=== PATIENT | male | born 1960 | race Caucasian/White ===

== ENCOUNTER 2016-11-19 05:32 | Emergency (ER) | payer MEDICAID ==
[~2016-11-19] VITALS: Ht 177.8 cm; Wt 69.9 kg
[~2016-11-19 05:32] MED LIST: NOR10T PO
[2016-11-19] MEDS ORDERED: SODIUM CHLORIDE 0.9% 1,000 ML IV ONE (06:47)
[2016-11-19 07:43] LABS: Basophils # (auto) 0 uL; Basophils % (auto) 0.4 % (0.0-2.0); Eosinophils # (auto) 0.3 uL; Eosinophils % (auto) 3.4 % (0.0-7.0); Hemoglobin 12.8 g/dL (13.5-17.5); Lymphocytes # (auto) 3.6 uL; Lymphocytes % (auto) 41.9 % (10.0-50.0); Mean Corpuscular Hemoglobin 30.1 pg (28.0-32.0); Mean Corpuscular Hgb Conc. 33.8 g/dL (32.0-36.0); Mean Corpuscular Volume 89.2 fL (80.0-100.0); Mean Platelet Volume 8.6 fL (7.4-10.4); Monocytes # (auto) 0.7 uL; Monocytes % (auto) 8.3 % (0.0-12.0); Neutrophils # (auto) 3.9 uL; Platelet Count (auto) 278 10^3/uL (140-450); Red Cell Distribution Width 13.7 % (11.6-16.0); White Blood Cell 8.5 10^3/uL (4.4-10.8)
[2016-11-19 08:14] LABS: Albumin 3.3 g/dL (3.4-5.0); BUN/Creatinine Ratio 15.1; Bilirubin, Total 0.3 mg/dL (0.2-1.0); Calcium 8.2 mg/dL (8.5-10.1); Total Protein 6.2 g/dL (6.4-8.2)
[2016-11-19 08:37] LABS: Urine RBC None Seen /hpf (0 - 3)
[2016-11-19 08:50] LABS: Urine Bilirubin Negative (Negative); Urine Blood Negative /uL (Negative); Urine Color Yellow (Yellow); Urine Glucose Normal (Normal); Urine Ketone Negative (Negative); Urine Nitrite Negative (Negative); Urine Urobilinogen Normal (Negative); Urine pH 6.5 (5.0-8.0)
[2016-11-19] MEDS ORDERED: IOHEXOL 300 MG/ML 100ML BOTTLE IJ ONE (09:52)
[2016-11-19 15:04] VITALS: BP 141/86
== END 2016-11-19 15:15 | disposition home or self-care (01) ==
LOC: ER 05:33
DX: Q89.2 Congenital malformations of other endocrine glands (principal); E44.1 Mild protein-calorie malnutrition; R73.9 Hyperglycemia, unspecified; I10 Essential (primary) hypertension; E78.5 Hyperlipidemia, unspecified; Z68.22 Body mass index [BMI] 22.0-22.9, adult; F17.210 Nicotine dependence, cigarettes, uncomplicated; F12.10 Cannabis abuse, uncomplicated; F15.10 Other stimulant abuse, uncomplicated
CPT/HCPCS: 36415; 70491; 71020; 76536; 80053; 81001; 83735; 84443; 85025; 96360; 96361; 99285; J7030; Q9967

== ENCOUNTER 2016-12-03 04:00 | Emergency (ER) | payer MEDICAID ==
[~2016-12-03] VITALS: Ht 177.8 cm; Wt 70.8 kg
[2016-12-03 04:51] LABS: Basophils # (auto) 0 uL; Basophils % (auto) 0.4 % (0.0-2.0); Eosinophils # (auto) 0.3 uL; Eosinophils % (auto) 3.3 % (0.0-7.0); Hematocrit 41.8 % (41.0-53.0); Hemoglobin 14.1 g/dL (13.5-17.5); Lymphocytes # (auto) 4.1 uL; Lymphocytes % (auto) 42.6 % (10.0-50.0); Mean Corpuscular Hgb Conc. 33.7 g/dL (32.0-36.0); Mean Corpuscular Volume 89.1 fL (80.0-100.0); Monocytes # (auto) 0.7 uL; Monocytes % (auto) 7.5 % (0.0-12.0); Neutrophils # (auto) 4.4 uL; Neutrophils % (auto) 46.2 % (37.0-80.0); Platelet Count (auto) 309 10^3/uL (140-450); Red Cell Distribution Width 13.8 % (11.6-16.0); White Blood Cell 9.6 10^3/uL (4.4-10.8)
[2016-12-03 05:04] LABS: Albumin 3.4 g/dL (3.4-5.0); Calcium 8.1 mg/dL (8.5-10.1); Potassium 3.7 mmol/L (3.5-5.1)
[2016-12-03 05:05] LABS: INR 0.92 (0.9-1.15); Partial Thromboplastin Time 28.1 sec (22.64-33.71)
[2016-12-03 05:06] LABS: BUN/Creatinine Ratio 21.4
[2016-12-03 05:08] LABS: Bilirubin, Total 0.3 mg/dL (0.2-1.0)
[2016-12-03 06:12] VITALS: BP 133/81
== END 2016-12-03 07:40 | disposition home or self-care (01) ==
LOC: ER 04:00
DX: Q89.2 Congenital malformations of other endocrine glands (principal); E78.5 Hyperlipidemia, unspecified; I10 Essential (primary) hypertension; F17.210 Nicotine dependence, cigarettes, uncomplicated; F12.10 Cannabis abuse, uncomplicated; F15.10 Other stimulant abuse, uncomplicated; Z79.899 Other long term (current) drug therapy
CPT/HCPCS: 36415; 70360; 80053; 84443; 85025; 85610; 85730

== ENCOUNTER 2018-05-15 09:16 | Emergency (ER) | payer MEDICAID ==
[~2018-05-15] VITALS: Ht 177.8 cm; Wt 68.0 kg
[2018-05-15 09:20] VITALS: BP 150/93
[2018-05-15] MEDS ORDERED: KETOROLAC TROMETH 60MG/2ML VIAL IM ONE (11:00)
== END 2018-05-15 11:24 | disposition left against medical advice (07) ==
LOC: ER 09:16
DX: G89.29 Other chronic pain (principal); M25.512 Pain in left shoulder; M54.2 Cervicalgia; E78.5 Hyperlipidemia, unspecified; I10 Essential (primary) hypertension; F12.10 Cannabis abuse, uncomplicated; F17.210 Nicotine dependence, cigarettes, uncomplicated; F15.10 Other stimulant abuse, uncomplicated; Z53.29 Procedure and treatment not carried out because of patient's decision for other reasons
CPT/HCPCS: 93005; 99283; J1885

== ENCOUNTER 2018-05-18 12:37 | Emergency (ER) | payer MEDICAID ==
[~2018-05-18] VITALS: Ht 177.8 cm; Wt 68.0 kg
[2018-05-18 13:16] VITALS: BP 148/88
[2018-05-18] MEDS ORDERED: HYDROcodone-ACET 5/325MG TAB PO ONE (14:00)
[2018-05-18] MEDS ORDERED: KETOROLAC TROMETH 60MG/2ML VIAL IM ONE (14:00)
== END 2018-05-18 16:15 | disposition home or self-care (01) ==
LOC: ER 12:43
DX: G89.29 Other chronic pain (principal); R51 Headache; M54.2 Cervicalgia; M25.512 Pain in left shoulder; M54.9 Dorsalgia, unspecified; I10 Essential (primary) hypertension; E78.00 Pure hypercholesterolemia, unspecified; F17.210 Nicotine dependence, cigarettes, uncomplicated; F15.10 Other stimulant abuse, uncomplicated; F12.10 Cannabis abuse, uncomplicated; Z79.891 Long term (current) use of opiate analgesic
CPT/HCPCS: 96372; 99283; J1885